=== PATIENT | female | born 1990 | race Native Hawaiian/Other Pacific Islander ===

== ENCOUNTER 2018-06-28 08:47 | Observation (INO) | payer BC, OTHER ==
--- NOTE | 2018-06-28 08:56 | ED PDOC ---
HPI: Skin/Bite Injury Time Seen by Provider: 06/28/18 08:49 Chief Complaint (Provider): Bug bite History Per: Patient History/Exam Limitations: no limitations Onset/Duration Of Symptoms: Days (x2) Current Symptoms Are (Timing): Still Present Location Of Injury: Left: Wrist Additional Complaint(s): 27 y/o female presents to the ER with a bug bite to the left wrist that occurred 2 days ago. Patient reports she has noticed streaking going up the left arm to the bicep. Denies fever or chills. PMD: none provided Past Medical History Reviewed: Historical Data, Nursing Documentation, Vital Signs - Medical History PMH: No Chronic Diseases - Surgical History Surgical History: No Surg Hx - Family History Family History: States: Unknown Family Hx - Allergies Allergies/Adverse Reactions: Allergies Allergy/AdvReac Type Severity Reaction Status Date / Time No Known Allergies Allergy Verified 06/28/18 09:04 Review of Systems ROS Statement: Except As Marked, All Systems Reviewed And Found Negative Constitutional: Negative for: Fever, Chills Skin: Positive for: Other (Bug bite to left wrist with streaking) Physical Exam - Reviewed Nursing Documentation Reviewed: Yes Vital Signs Reviewed: Yes - Physical Exam Appears: Positive for: No Acute Distress Extremity: Positive for: Other (Left upper extremity: erythema, tenderness, and mild swelling to left wrist with erythematous streaking up the forearm to the mid bicep, (-) lymphadenopathy) Neurological/Psych: Positive for: Awake, Alert, Normal Tone, Oriented - Laboratory Results Result Diagrams: 06/28/18 09:05 06/28/18 09:05 Medical Decision Making Medical Decision Making: Initial Impression: Cellulitis/lymphangitis Initial Plan: --VBG --CMP --CBC --Clindamycin 600mg IV --Blood culture Will draw blood and start on IV antibiotics while awaiting bloodwork. Scribe Attestation: Documented by Venkatesh Stiles acting as a scribe for Robin Duffy MD. Provider Scribe Attestation: All medical record entries made by the Scribe were at my direction and personally dictated by me. I have reviewed the chart and agree that the record accurately reflects my personal performance of the history, physical exam, medical decision making, and the department course for this patient. I have also personally directed, reviewed, and agree with the discharge instructions and disposition. Disposition - Clinical Impression Clinical Impression: Lymphangitis - Patient ED Disposition Is Patient to be Admitted: Yes - Disposition Disposition Time: 10:21 Condition: FAIR - Pt Status Changed To: Hospital Disposition Of: Observation - POA Present On Arrival: None
[2018-06-28] MEDS ORDERED: Clindamycin 600mg/50ml D5W 600 MG/50 ML VIAL IVPB SCH (09:15)
[2018-06-28 09:29] LABS: VENOUS BLOOD GAS BASE EXCESS 1.5 mmol/L (0.0-2.0); VENOUS BLOOD GAS PCO2 49 mmHg (40-60); VENOUS BLOOD GAS PO2 26 mm/Hg (30-55); VENOUS BLOOD PH 7.36 (7.32-7.43)
[2018-06-28 10:00] LABS: BASO % 0.4 % (0.0-2.0); EOS # 0.1 K/uL (0.0-0.7); EOS % 2.1 % (0.0-4.0); HEMOGLOBIN 13.3 g/dL (12.0-16.0); LYMPH # 1.1 K/uL (1.0-4.3); LYMPH % 25.6 % (20.0-40.0); MEAN CELL VOLUME 98.3 fl (81.0-99.0); MEAN CORPUSCULAR HEMOGLOBIN 32.8 pg (27.0-31.0); MEAN CORPUSCULAR HGB CONC 33.4 g/dL (33.0-37.0); MONO # 0.3 K/uL (0.0-0.8); MONO % 8.1 % (0.0-10.0); NEUT # 2.8 K/uL (1.8-7.0); NEUT % 63.8 % (50.0-75.0); NRBC % 0.2 % (0.0-0.0); RBC 4.03 Mil/uL (3.80-5.20); RED CELL DISTRIBUTION WIDTH 12.7 % (11.5-14.5); WHITE BLOOD COUNT 4.3 K/uL (4.8-10.8)
[2018-06-28 10:08] LABS: ALB/GLOB RATIO 1.2 (1.0-2.1); ALBUMIN 4.3 g/dL (3.5-5.0); ALT/SGPT 28 U/L (9-52); AST/SGOT 37 U/L (14-36); BLOOD UREA NITROGEN 13 mg/dl (7-17); GFR NON-AFRICAN AMERICAN > 60
[2018-06-28 10:27] VITALS: BMI 21.0
[2018-06-28] MEDS ORDERED: Linezolid 600 mg in D5W 300 ml 600 MG/300 ML BAG IVPB SCH (10:30)
[2018-06-28] MEDS ORDERED: Clindamycin 600mg/50ml D5W 600 MG/50 ML VIAL IVPB ONE (10:30)
--- NOTE | 2018-06-28 11:23 | CP.PCM.HP ---
<Fiorella Sauceda - Last Filed: 06/28/18 15:04> History of Present Illness - History of Present Illness History of Present Illness: 27 YO female presented to the ED with c/o a bug bite to the left wrist noted 2 days ago. Patient reports she has noticed streaking going up the left arm to the bicep associated with some swelling of the arm. Also patient noted another bug bite on the external aspect of the left upper arm region with erythema and swelling x 2 days ago. Denies fever or chills, FINCH, SOB or other acute complaint at this time. ROS: as Per HPI PMD: none provided PMH: NOne FMH: Father DM, mother gouts SURG: HErnia repair ALLERG: NKDA SOCHx: Social drinker only, denies tobacco or drug use Present on Admission - Present on Admission Any Indicators Present on Admission: No History of DVT/PE: No History of Uncontrolled Diabetes: No Urinary Catheter: No Decubitus Ulcer Present: No Past Patient History - Past Social History Smoking Status: Never Smoked - PSYCHIATRIC Hx Substance Use: No - SURGICAL HISTORY Hx Surgeries: No Meds Allergies/Adverse Reactions: Allergies Allergy/AdvReac Type Severity Reaction Status Date / Time No Known Allergies Allergy Verified 06/28/18 09:04 Physical Exam - Head Exam Head Exam: NORMAL INSPECTION - Eye Exam Eye Exam: EOMI - ENT Exam ENT Exam: Mucous Membranes Moist - Respiratory Exam Respiratory Exam: Clear to Auscultation Bilateral, NORMAL BREATHING PATTERN - Cardiovascular Exam Cardiovascular Exam: REGULAR RHYTHM, +S1, +S2 - GI/Abdominal Exam GI & Abdominal Exam: Normal Bowel Sounds, Soft. absent: Tenderness - Extremities Exam Extremities exam: Positive for: full ROM Additional comments: Left wrist erythema and mild swelling with streaking to the upper arm area - Neurological Exam Neurological exam: Alert, CN II-XII Intact, Oriented x3 - Psychiatric Exam Psychiatric exam: Normal Affect - Skin Skin Exam: Normal Color, Warm Results - Vital Signs Recent Vital Signs: Last Vital Signs Temp 98.6 F 06/28/18 09:09 Pulse 80 06/28/18 09:09 Resp 16 06/28/18 09:09 BP 113/70 06/28/18 09:09 Pulse Ox 100 06/28/18 09:09 - Labs Result Diagrams: 06/28/18 09:05 06/28/18 09:05 Labs: Laboratory Results - last 24 hr 06/28/18 06/28/18 06/28/18 09:05 09:05 09:20 WBC 4.3 L RBC 4.03 Hgb 13.3 Hct 39.7 MCV 98.3 MCH 32.8 H MCHC 33.4 RDW 12.7 Plt Count 351 MPV 8.0 Neut % (Auto) 63.8 Lymph % (Auto) 25.6 [place] % (Auto) 8.1 Eos % (Auto) 2.1 Baso % (Auto) 0.4 Neut # (Auto) 2.8 Lymph # (Auto) 1.1 [place] # (Auto) 0.3 Eos # (Auto) 0.1 Baso # (Auto) 0.0 pO2 26 L VBG pH 7.36 VBG pCO2 49 VBG HCO3 24.7 VBG Total CO2 29.2 H VBG O2 Sat (Calc) 55.6 VBG Base Excess 1.5 VBG Potassium 3.6 Glucose 88 Lactate 1.4 FiO2 21.0 Sodium 139 138.0 Potassium 3.7 Chloride 103 105.0 Carbon Dioxide 25 Anion Gap 15 BUN 13 Creatinine 0.7 Est GFR ( Amer) > 60 Est GFR (Non-Af Amer) > 60 Random Glucose 88 Calcium 9.0 Total Bilirubin 0.6 AST 37 H ALT 28 Alkaline Phosphatase 56 Total Protein 7.7 Albumin 4.3 Globulin 3.4 Albumin/Globulin Ratio 1.2 Venous Blood Potassium 3.6 Assessment & Plan - Assessment and Plan (Free Text) Assessment: 27 YO female presented to the ED with c/o a bug bite to the left wrist noted 2 days ago. Patient reports she has noticed streaking going up the left arm to the bicep associated with some swelling of the arm, will be admitted for LUE Lymphangitis. Plan: #LUE Lymphangitis Admit to med surg Pain management Clindamycin IV x 1 dose given C/w Linezolid IV CBC reviewed F/u CBC in AM DVT PPX Lovenox SC QD <Gerber Conn D - Last Filed: 06/28/18 17:31> Results - Vital Signs Recent Vital Signs: Last Vital Signs Temp 97.7 F 06/28/18 16:55 Pulse 74 06/28/18 16:55 Resp 19 06/28/18 16:55 BP 112/80 06/28/18 16:55 Pulse Ox 99 06/28/18 16:55 - Labs Result Diagrams: 06/28/18 09:05 06/28/18 09:05 Labs: Laboratory Results - last 24 hr 06/28/18 06/28/18 06/28/18 09:05 09:05 09:20 WBC 4.3 L RBC 4.03 Hgb 13.3 Hct 39.7 MCV 98.3 MCH 32.8 H MCHC 33.4 RDW 12.7 Plt Count 351 MPV 8.0 Neut % (Auto) 63.8 Lymph % (Auto) 25.6 [place] % (Auto) 8.1 Eos % (Auto) 2.1 Baso % (Auto) 0.4 Neut # (Auto) 2.8 Lymph # (Auto) 1.1 [place] # (Auto) 0.3 Eos # (Auto) 0.1 Baso # (Auto) 0.0 pO2 26 L VBG pH 7.36 VBG pCO2 49 VBG HCO3 24.7 VBG Total CO2 29.2 H VBG O2 Sat (Calc) 55.6 VBG Base Excess 1.5 VBG Potassium 3.6 Glucose 88 Lactate 1.4 FiO2 21.0 Sodium 139 138.0 Potassium 3.7 Chloride 103 105.0 Carbon Dioxide 25 Anion Gap 15 BUN 13 Creatinine 0.7 Est GFR ( Amer) > 60 Est GFR (Non-Af Amer) > 60 Random Glucose 88 Calcium 9.0 Total Bilirubin 0.6 AST 37 H ALT 28 Alkaline Phosphatase 56 Total Protein 7.7 Albumin 4.3 Globulin 3.4 Albumin/Globulin Ratio 1.2 Venous Blood Potassium 3.6 Attending/Attestation - Attestation I have personally seen and examined this patient.: Yes I have fully participated in the care of the patient.: Yes I have reviewed all pertinent clinical information: Yes Notes (Text): 06/28/18 17:30 Patient seen and examined with resident. Case discussed and agreed with assessment and plan of management.
--- NOTE | 2018-06-28 17:16 | CP.PCM.CON ---
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 Review of Systems - Review of Systems All systems: reviewed and no additional remarkable complaints except - Constitutional Constitutional: As Per HPI - EENT Eyes: absent: As Per HPI, Blind Spots, Blurred Vision, Change in Vision, Decreased Night Vision, Diplopia, Discharge, Dry Eye, Exophthalmos, Floaters, Irritation, Itchy Eyes, Loss of Peripheral Vision, Pain, Photophobia, Requires Corrective Lenses, Sees Flashes, Spots in Vision, Tunnel Vision, Other Visual Disturbances, Loss of Vision, Other Ears: absent: As Per HPI, Decreased Hearing, Ear Discharge, Ear Pain, Tinnitus, Abnormal Hearing, Disequilibrium, Dizziness, Other Nose/Mouth/Throat: absent: As Per HPI, Epistaxis, Nasal Congestion, Nasal Discharge, Nasal Obstruction, Nasal Trauma, Nose Pain, Post Nasal Drip, Sinus Pain, Sinus Pressure, Bleeding Gums, Change in Voice, Dental Pain, Dry Mouth, Dysphagia, Halitosis, Hoarsness, Lip Swelling, Mouth Lesions, Mouth Pain, Odynophagia, Sore Throat, Throat Swelling, Tongue Swelling, Facial Pain, Neck Pain, Neck Mass, Other - Breasts Breasts: absent: As Per HPI, Change in Shape, Mass, Pain, Nipple Discharge, Nipple Inversion, Skin Changes, Swelling, Other - Cardiovascular Cardiovascular: absent: As Per HPI, Acrocyanosis, Chest Pain, Chest Pain at Rest, Chest Pain with Activity, Claudication, Diaphoresis, Dyspnea, Dyspnea on Exertion, Edema, Irregular Heart Rhythm, Pain Radiating to Arm/Neck/Jaw, Leg Edema, Leg Ulcers, Lightheadedness, Orthopnea, Palpitations, Paroxysmal Nocturnal Dyspnea, Pedal Edema, Radiating Pain, Rapid Heart Rate, Slow Heart Rate, Syncope, Other - Respiratory Respiratory: absent: As Per HPI, Cough, Dyspnea, Hemoptysis, Dyspnea on Exertion, Wheezing, Snoring, Stridor, Pain on Inspiration, Chest Congestion, Excessive Mucous Production, Change in Mucous Color, Pain with Coughing, Other - Gastrointestinal Gastrointestinal: absent: As Per HPI, Abdominal Pain, Belching, Bloating, Change in Bowel Habits, Change in Stool Character, Coffee Ground Emesis, Constipation, Cramping, Diarrhea, Dyspepsia, Dysphagia, Early Satiety, Excessive Flatus, Fecal Incontinence, Heartburn, Hematemesis, Hematochezia, Loose Stools, Melena, Nausea, Odynophagia, Temesmus, Vomiting, Other - Genitourinary Genitourinary: absent: As Per HPI, Change in Urinary Stream, Difficulty Urinating, Dysuria, Flank Pain, Hematuria, Pyuria, Nocturia, Urinary Incontinence, Urinary Frequency, Urinary Hesitance, Urinary Urgency, Voiding Freq/Small Amts, Freq UTI, Hx Renal/Bladder Calculi, Hx /Renal Surgery, Bladder Distension, Other - Reproductive: Female Reproductive:Female: absent: As Per HPI, Amenorrhea, Amenorrhea/ Control, Currently Menstual, Cycle <21 Days, Cycle >35 Days, Cycle Variable, Menses 1-7 Days, Menses >/= 8 Days, Menses Variable, Cycle > 4 Weeks Between, No Menses for 6 Months, Heavy Menses, Light Menses, Normal Menses, Spotting Between Cycles, S/P Hysterectomy, Menopausal, Post Menopausal, Premenarche, Abnormal Vaginal Bleeding, Dysmenorrhea, Dyspareunia, Genital Lesions, Genital Pruritis, Pelvic Pain, Prolapse Symptoms, Sexual Dysfunction, Vaginal Discharge, Vaginal Dryness, Vaginal Odor, Vaginal Pruritis, Other - Menstruation Menstruation: absent: As Per HPI, Amenorrhea, Amenorrhea/ Control, Currently Menstual, Cycle <21 Days, Cycle >35 Days, Cycle Variable, Menses 1-7 Days, Menses >/= 8 Days, Menses Variable, Cycle > 4 Weeks Between, No Menses for 6 Months, Heavy Menses, Light Menses, Normal Menses, Spotting Between Cycles, S/P Hysterectomy, Menopausal, Post Menopausal, Premenarche, Abnormal Vaginal Bleeding, Dysmenorrhea, Other - Musculoskeletal Musculoskeletal: As Per HPI - Integumentary Integumentary: As Per HPI, Skin Pain, Wounds - Neurological Neurological: absent: As Per HPI, Abnormal Gait, Abnormal Hearing, Abnormal Movements, Abnormal Speech, Behavioral Changes, Burning Sensations, Confusion, Convulsions, Disequilibrium, Dizziness, Numbness, Focal Weakness, Frequent Falls, Headaches, Lack of Coordination, Loss of Vision, Memory Loss, Paresthesias, Radicular Pain, Restless Legs, Sensory Deficit, Syncope, Tingling, Tremor, Vertigo, Weakness, Other Visual Disturbances, Other - Psychiatric Psychiatric: absent: As Per HPI, Abnormal Sleep Pattern, Anhedonia, Anxiety, Auditory Hallucinations, Behavioral Changes, Change in Appetite, Change in Libido, Confusion, Depression, Difficulty Concentrating, Hallucinations, Homicidal Ideation, Hopelessness, Irritability, Memory Loss, Mood Swings, Panic Attacks, Paranoia, Suicidal Ideation, Visual Hallucinations, Tactile Hallucinations, Other - Endocrine Endocrine: absent: As Per HPI, Change in Body Appearance, Change in Libido, Cold Intolorance, Deepening of Voice, Excessive Sweating, Fatigue, Flushing, Heat Intolorance, Increase in Ring/Shoe/Hat Size, Palpitations, Polydipsia, Polyphagia, Polyuria, Other - Hematologic/Lymphatic Hematologic: absent: As Per HPI, Easy Bleeding, Easy Bruising, Lymphadenopathy, Other Past Patient History - Past Social History Smoking Status: Never Smoked - CARDIAC Hx Cardiac Disorders: No - PSYCHIATRIC Hx Substance Use: No - SURGICAL HISTORY Hx Surgeries: No Meds Allergies/Adverse Reactions: Allergies Allergy/AdvReac Type Severity Reaction Status Date / Time No Known Allergies Allergy Verified 06/28/18 09:04 - Medications Medications: Current Medications Enoxaparin Sodium (Lovenox) 40 mg SC DAILY [facility]; Protocol Linezolid (Zyvox 600mg/300ml D5w) 600 mg in 300 mls @ 300 mls/hr IVPB Q12 [facility]; Protocol Loratadine (Claritin) 10 mg PO DAILY [facility] Last Admin: 06/28/18 13:30 Dose: 10 mg Physical Exam - Constitutional Appears: Non-toxic, No Acute Distress - Head Exam Head Exam: ATRAUMATIC, NORMAL INSPECTION, NORMOCEPHALIC - Eye Exam Eye Exam: EOMI, Normal appearance, PERRL Pupil Exam: NORMAL ACCOMODATION, PERRL - ENT Exam ENT Exam: Mucous Membranes Moist, Normal Exam - Neck Exam Neck exam: Positive for: Normal Inspection - Respiratory Exam Respiratory Exam: Clear to Auscultation Bilateral, NORMAL BREATHING PATTERN - Cardiovascular Exam Cardiovascular Exam: REGULAR RHYTHM - GI/Abdominal Exam GI & Abdominal Exam: Normal Bowel Sounds, Soft. absent: Tenderness - Rectal Exam Rectal Exam: Deferred - Exam Exam: NORMAL INSPECTION - Extremities Exam Extremities exam: Positive for: normal capillary refill, pedal pulses present. Negative for: calf tenderness, joint swelling, normal inspection Additional comments: left and swelling and redness with lymphangits up left arm - Back Exam Back exam: NORMAL INSPECTION - Neurological Exam Neurological exam: Alert, CN II-XII Intact, Normal Gait, Oriented x3, Reflexes Normal - Psychiatric Exam Psychiatric exam: Normal Affect, Normal Mood - Skin Skin Exam: Dry, Erythema, Intact Results - Vital Signs Recent Vital Signs: Last Vital Signs Temp 97.7 F 06/28/18 16:55 Pulse 74 06/28/18 16:55 Resp 19 06/28/18 16:55 BP 112/80 06/28/18 16:55 Pulse Ox 99 06/28/18 16:55 - Labs Result Diagrams: 06/28/18 09:05 06/28/18 09:05 Labs: Laboratory Results - last 24 hr 06/28/18 06/28/18 06/28/18 09:05 09:05 09:20 WBC 4.3 L RBC 4.03 Hgb 13.3 Hct 39.7 MCV 98.3 MCH 32.8 H MCHC 33.4 RDW 12.7 Plt Count 351 MPV 8.0 Neut % (Auto) 63.8 Lymph % (Auto) 25.6 [place] % (Auto) 8.1 Eos % (Auto) 2.1 Baso % (Auto) 0.4 Neut # (Auto) 2.8 Lymph # (Auto) 1.1 [place] # (Auto) 0.3 Eos # (Auto) 0.1 Baso # (Auto) 0.0 pO2 26 L VBG pH 7.36 VBG pCO2 49 VBG HCO3 24.7 VBG Total CO2 29.2 H VBG O2 Sat (Calc) 55.6 VBG Base Excess 1.5 VBG Potassium 3.6 Glucose 88 Lactate 1.4 FiO2 21.0 Sodium 139 138.0 Potassium 3.7 Chloride 103 105.0 Carbon Dioxide 25 Anion Gap 15 BUN 13 Creatinine 0.7 Est GFR ( Amer) > 60 Est GFR (Non-Af Amer) > 60 Random Glucose 88 Calcium 9.0 Total Bilirubin 0.6 AST 37 H ALT 28 Alkaline Phosphatase 56 Total Protein 7.7 Albumin 4.3 Globulin 3.4 Albumin/Globulin Ratio 1.2 Venous Blood Potassium 3.6 Assessment & Plan (1) Lymphangitis Status: Acute (2) Cellulitis and abscess of hand, except fingers and thumb Status: Acute - Assessment and Plan (Free Text) Assessment: 27 yo healthy female is admitted for cellulitis and lymphangitis left hand and arm started 2 days ago with insect bite no fever or chills no travel some contact with pets likely organisms include strep and staph must cover for MRSA cont Zyvox for now 'switch to PO rx if improving and blood c/s negative
[2018-06-28] MEDS ORDERED: Diphenhydramine 1% CREAM TOP PRN (17:33)
[2018-06-28 18:10] VITALS: RESP 18
[2018-06-28] MEDS: Linezolid 600 mg in D5W 300 ml 600 MG/300 ML BAG IVPB SCH (22:09)
[2018-06-29 00:25] VITALS: O2SAT 97
[2018-06-29 06:37] LABS: BASO % 0.3 % (0.0-2.0); EOS # 0.2 K/uL (0.0-0.7); EOS % 4.4 % (0.0-4.0); HEMOGLOBIN 12.5 g/dL (12.0-16.0); LYMPH # 1.5 K/uL (1.0-4.3); LYMPH % 31.2 % (20.0-40.0); MEAN CELL VOLUME 97.9 fl (81.0-99.0); MEAN CORPUSCULAR HEMOGLOBIN 32.7 pg (27.0-31.0); MEAN CORPUSCULAR HGB CONC 33.4 g/dL (33.0-37.0); MEAN PLATELET VOLUME 7.9 fl (7.2-11.7); MONO # 0.4 K/uL (0.0-0.8); MONO % 9.5 % (0.0-10.0); NEUT # 2.6 K/uL (1.8-7.0); NEUT % 54.6 % (50.0-75.0); NRBC % 0.1 % (0.0-0.0); RBC 3.82 Mil/uL (3.80-5.20); RED CELL DISTRIBUTION WIDTH 12.7 % (11.5-14.5); WHITE BLOOD COUNT 4.7 K/uL (4.8-10.8)
[2018-06-29 06:59] LABS: BLOOD UREA NITROGEN 17 mg/dl (7-17); CALCIUM 8.5 mg/dL (8.4-10.2); GFR NON-AFRICAN AMERICAN > 60
[2018-06-29 08:24] VITALS: BP 101/61; PULSE 63; TEMP 97.7
[2018-06-29] MEDS ORDERED: Enoxaparin 40 mg Syringe SC SCH (09:00)
[2018-06-29] MEDS: Linezolid 600 mg in D5W 300 ml 600 MG/300 ML BAG IVPB SCH (09:28)
--- NOTE | 2018-06-29 10:04 | CP.PCM.DIS ---
<Gretchen NjFiorella - Last Filed: 06/29/18 13:14> Provider - Provider Date of Admission: 06/28/18 10:20 Attending physician: Alem Isaacs DO Consults: 06/28/18 10:20 Physician Consult Stat Comment: Consulting Provider: Donald Burciaga Consulting Physician: Donald Burciaga Reason for Consult: lymphangitis Time Spent in preparation of Discharge (in minutes): 33 Diagnosis - Discharge Diagnosis (1) Cellulitis and abscess of hand, except fingers and thumb Status: Acute (2) Lymphangitis Status: Acute Hospital Course - Lab Results Lab Results: Micro Results 06/28/18 09:05 Blood-Venous Blood Culture - Preliminary NO GROWTH AFTER 24 HOURS 06/28/18 09:20 Blood-Venous Blood Culture - Preliminary NO GROWTH AFTER 24 HOURS Most Recent Lab Values WBC 4.7 K/uL (4.8-10.8) L 06/29/18 06:00 RBC 3.82 Mil/uL (3.80-5.20) 06/29/18 06:00 Hgb 12.5 g/dL (12.0-16.0) 06/29/18 06:00 Hct 37.4 % (34.0-47.0) 06/29/18 06:00 MCV 97.9 fl (81.0-99.0) 06/29/18 06:00 MCH 32.7 pg (27.0-31.0) H 06/29/18 06:00 MCHC 33.4 g/dL (33.0-37.0) 06/29/18 06:00 RDW 12.7 % (11.5-14.5) 06/29/18 06:00 Plt Count 343 K/uL (130-400) 06/29/18 06:00 MPV 7.9 fl (7.2-11.7) 06/29/18 06:00 Neut % (Auto) 54.6 % (50.0-75.0) 06/29/18 06:00 Lymph % (Auto) 31.2 % (20.0-40.0) 06/29/18 06:00 [place] % (Auto) 9.5 % (0.0-10.0) 06/29/18 06:00 Eos % (Auto) 4.4 % (0.0-4.0) H 06/29/18 06:00 Baso % (Auto) 0.3 % (0.0-2.0) 06/29/18 06:00 Neut # (Auto) 2.6 K/uL (1.8-7.0) 06/29/18 06:00 Lymph # (Auto) 1.5 K/uL (1.0-4.3) 06/29/18 06:00 [place] # (Auto) 0.4 K/uL (0.0-0.8) 06/29/18 06:00 Eos # (Auto) 0.2 K/uL (0.0-0.7) 06/29/18 06:00 Baso # (Auto) 0.0 K/uL (0.0-0.2) 06/29/18 06:00 pO2 26 mm/Hg (30-55) L 06/28/18 09:20 VBG pH 7.36 (7.32-7.43) 06/28/18 09:20 VBG pCO2 49 mmHg (40-60) 06/28/18 09:20 VBG HCO3 24.7 mmol/L 06/28/18 09:20 VBG Total CO2 29.2 mmol/L (22-28) H 06/28/18 09:20 VBG O2 Sat (Calc) 55.6 % (40-65) 06/28/18 09:20 VBG Base Excess 1.5 mmol/L (0.0-2.0) 06/28/18 09:20 VBG Potassium 3.6 mmol/L (3.6-5.2) 06/28/18 09:20 Sodium 138.0 mmol/L (132-148) 06/28/18 09:20 Chloride 105.0 mmol/L (98-107) 06/28/18 09:20 Glucose 88 mg/dL (65-105) 06/28/18 09:20 Lactate 1.4 mmol/L (0.7-2.1) 06/28/18 09:20 FiO2 21.0 % 06/28/18 09:20 Sodium 139 mmol/l (132-148) 06/29/18 06:00 Potassium 3.9 MMOL/L (3.6-5.0) 06/29/18 06:00 Chloride 106 mmol/L (98-107) 06/29/18 06:00 Carbon Dioxide 22 mmol/L (22-30) 06/29/18 06:00 Anion Gap 15 (10-20) 06/29/18 06:00 BUN 17 mg/dl (7-17) 06/29/18 06:00 Creatinine 0.7 mg/dl (0.7-1.2) 06/29/18 06:00 Est GFR ( Amer) > 60 06/29/18 06:00 Est GFR (Non-Af Amer) > 60 06/29/18 06:00 Random Glucose 86 mg/dL (65-105) 06/29/18 06:00 Calcium 8.5 mg/dL (8.4-10.2) 06/29/18 06:00 Total Bilirubin 0.6 mg/dl (0.2-1.3) 06/28/18 09:05 AST 37 U/L (14-36) H 06/28/18 09:05 ALT 28 U/L (9-52) 06/28/18 09:05 Alkaline Phosphatase 56 U/L (38-126) 06/28/18 09:05 Total Protein 7.7 G/DL (6.3-8.2) 06/28/18 09:05 Albumin 4.3 g/dL (3.5-5.0) 06/28/18 09:05 Globulin 3.4 gm/dL (2.2-3.9) 06/28/18 09:05 Albumin/Globulin Ratio 1.2 (1.0-2.1) 06/28/18 09:05 Venous Blood Potassium 3.6 mmol/L (3.6-5.2) 06/28/18 09:20 - Hospital Course Hospital Course: 27 YO female presented to the ED with c/o a bug bite to the left wrist noted 2 days ago. Patient reports she has noticed streaking going up the left arm to the bicep associated with some swelling of the arm. Also patient noted another bug bite on the external aspect of the left upper arm region with erythema and swelling x 2 days ago. Denies fever or chills, FINCH, SOB or other acute complaint at this time.Clindamycin IV x 1 dose given in ED. Patient received treatment with Zyvox IV. Patient with significant improvement today, Stable to be DC on oral antibiotic with Zyvox. F/u with ID Dr Burciaga. BC no growth x 24 h. CBC WBC 4.7. Afebrile Stable to be DC and for outpatient treatment Discharge Exam - Head Exam Head Exam: ATRAUMATIC, NORMAL INSPECTION, NORMOCEPHALIC - Eye Exam Eye Exam: EOMI - ENT Exam ENT Exam: Mucous Membranes Moist - Respiratory Exam Respiratory Exam: NORMAL BREATHING PATTERN - Cardiovascular Exam Cardiovascular Exam: REGULAR RHYTHM - Extremities Exam Extremities exam: full ROM Additional comments: faint left wrist erythema, significant improved from prior day - Neurological Exam Neurological exam: Alert, Oriented x3 - Skin Skin Exam: Normal Color, Warm Discharge Plan - Follow Up Plan Condition: FAIR Disposition: HOME/ ROUTINE Instructions: Cellulitis (Skin Infection), Adult (DC), Linezolid Additional Instructions: follow up with dr burciaga, your primary MD 1 week Referrals: Donald Burciaga MD [Staff Provider] - <Alem Isaacs - Last Filed: 06/29/18 19:21> Provider - Provider Date of Admission: 06/28/18 10:20 Attending physician: Alem Isaacs DO Consults: 06/28/18 10:20 Physician Consult Stat Comment: Consulting Provider: Donald Burciaga Consulting Physician: Donald Burciaga Reason for Consult: lymphangitis Hospital Course - Lab Results Lab Results: Micro Results 06/28/18 09:05 Blood-Venous Blood Culture - Preliminary NO GROWTH AFTER 24 HOURS 06/28/18 09:20 Blood-Venous Blood Culture - Preliminary NO GROWTH AFTER 24 HOURS Most Recent Lab Values WBC 4.7 K/uL (4.8-10.8) L 06/29/18 06:00 RBC 3.82 Mil/uL (3.80-5.20) 06/29/18 06:00 Hgb 12.5 g/dL (12.0-16.0) 06/29/18 06:00 Hct 37.4 % (34.0-47.0) 06/29/18 06:00 MCV 97.9 fl (81.0-99.0) 06/29/18 06:00 MCH 32.7 pg (27.0-31.0) H 06/29/18 06:00 MCHC 33.4 g/dL (33.0-37.0) 06/29/18 06:00 RDW 12.7 % (11.5-14.5) 06/29/18 06:00 Plt Count 343 K/uL (130-400) 06/29/18 06:00 MPV 7.9 fl (7.2-11.7) 06/29/18 06:00 Neut % (Auto) 54.6 % (50.0-75.0) 06/29/18 06:00 Lymph % (Auto) 31.2 % (20.0-40.0) 06/29/18 06:00 [place] % (Auto) 9.5 % (0.0-10.0) 06/29/18 06:00 Eos % (Auto) 4.4 % (0.0-4.0) H 06/29/18 06:00 Baso % (Auto) 0.3 % (0.0-2.0) 06/29/18 06:00 Neut # (Auto) 2.6 K/uL (1.8-7.0) 06/29/18 06:00 Lymph # (Auto) 1.5 K/uL (1.0-4.3) 06/29/18 06:00 [place] # (Auto) 0.4 K/uL (0.0-0.8) 06/29/18 06:00 Eos # (Auto) 0.2 K/uL (0.0-0.7) 06/29/18 06:00 Baso # (Auto) 0.0 K/uL (0.0-0.2) 06/29/18 06:00 pO2 26 mm/Hg (30-55) L 06/28/18 09:20 VBG pH 7.36 (7.32-7.43) 06/28/18 09:20 VBG pCO2 49 mmHg (40-60) 06/28/18 09:20 VBG HCO3 24.7 mmol/L 06/28/18 09:20 VBG Total CO2 29.2 mmol/L (22-28) H 06/28/18 09:20 VBG O2 Sat (Calc) 55.6 % (40-65) 06/28/18 09:20 VBG Base Excess 1.5 mmol/L (0.0-2.0) 06/28/18 09:20 VBG Potassium 3.6 mmol/L (3.6-5.2) 06/28/18 09:20 Sodium 138.0 mmol/L (132-148) 06/28/18 09:20 Chloride 105.0 mmol/L (98-107) 06/28/18 09:20 Glucose 88 mg/dL (65-105) 06/28/18 09:20 Lactate 1.4 mmol/L (0.7-2.1) 06/28/18 09:20 FiO2 21.0 % 06/28/18 09:20 Sodium 139 mmol/l (132-148) 06/29/18 06:00 Potassium 3.9 MMOL/L (3.6-5.0) 06/29/18 06:00 Chloride 106 mmol/L (98-107) 06/29/18 06:00 Carbon Dioxide 22 mmol/L (22-30) 06/29/18 06:00 Anion Gap 15 (10-20) 06/29/18 06:00 BUN 17 mg/dl (7-17) 06/29/18 06:00 Creatinine 0.7 mg/dl (0.7-1.2) 06/29/18 06:00 Est GFR ( Amer) > 60 06/29/18 06:00 Est GFR (Non-Af Amer) > 60 06/29/18 06:00 Random Glucose 86 mg/dL (65-105) 06/29/18 06:00 Calcium 8.5 mg/dL (8.4-10.2) 06/29/18 06:00 Total Bilirubin 0.6 mg/dl (0.2-1.3) 06/28/18 09:05 AST 37 U/L (14-36) H 06/28/18 09:05 ALT 28 U/L (9-52) 06/28/18 09:05 Alkaline Phosphatase 56 U/L (38-126) 06/28/18 09:05 Total Protein 7.7 G/DL (6.3-8.2) 06/28/18 09:05 Albumin 4.3 g/dL (3.5-5.0) 06/28/18 09:05 Globulin 3.4 gm/dL (2.2-3.9) 06/28/18 09:05 Albumin/Globulin Ratio 1.2 (1.0-2.1) 06/28/18 09:05 Venous Blood Potassium 3.6 mmol/L (3.6-5.2) 06/28/18 09:20 Attending/Attestation - Attestation I have personally seen and examined this patient.: Yes I have fully participated in the care of the patient.: Yes I have reviewed all pertinent clinical information, including history, physical exam and plan: Yes Notes (Text): Agree with findings and plan as above.
== END 2018-06-29 13:05 | disposition home or self-care (01) ==
LOC: H.ER 08:47 → H.ERHOLD 10:20 → H.MEDSURG1 16:42
PROVIDERS: ADMIT Student in an Organized Health Care Education/Training Program; ATTEND Student in an Organized Health Care Education/Training Program
DX: L03.114 Cellulitis of left upper limb (principal); W57.XXXA Bitten or stung by nonvenomous insect and other nonvenomous arthropods, initial encounter; Y92.9 Unspecified place or not applicable
CPT/HCPCS: 36415; 80048; 80053; 81025; 82803; 85025; 87040; 99284; G0378; J1650; J2020